=== PATIENT | male | born 1975 | race Caucasian/White ===

== ENCOUNTER 2019-01-02 19:38 | Emergency (ER) | payer MEDICAID ==
[~2019-01-02] VITALS: Ht 170.2 cm; Wt 82.8 kg
[2019-01-02 19:45] VITALS: Ht 170.2 cm; Wt 82.8 kg
[2019-01-02] MEDS ORDERED: PRED20TA PO (20:05)
[2019-01-02] MEDS ORDERED: LACR35O RIGHT EYE (20:05)
[2019-01-02] MEDS ORDERED: LACR35O LEFT EYE (20:05)
[2019-01-02] MEDS ORDERED: predniSONE 20 MG TAB PO ONE (20:30)
[2019-01-02 21:10] VITALS: BP 143/92; PULSE 75; RESP 19
--- NOTE | 2019-01-02 22:18 | ERD ---
ER Documentation Chief Complaint Chief Complaint CHEST PAIN, NUMBNESS; LAST KNOWN WELL 2100, YESTERDAY HPI Patient is a 43-year-old male with hypertension and diabetes who presents with left-sided facial droop. He is a left sided facial droop which includes his eyebrow on the left side. It started this morning. He has had no treatment as of yet. He has no fevers. He has no slurred speech. He has no amatory dysfunction. He has no weakness of the arms or legs. He does have a primary doctor. ROS All systems reviewed and are negative except as per history of present illness. Medications Home Meds Active Scripts Mineral Oil/Lanolin Oil (Lacri-Lube) 3.5 Gm Oint, 1 APPLIC LEFT EYE NEEDED for DRY EYES, #1 EA Prov:ALBER OLSON MD 01/02/19 Mineral Oil/Lanolin Oil (Lacri-Lube) 3.5 Gm Oint, 1 APPLIC RIGHT EYE NEEDED for DRY EYES, #1 EA Prov:ALBER OLSON MD 01/02/19 Prednisone* (Prednisone*) 20 Mg Tab, 60 MG PO DAILY for 4 Days, TAB Prov:ALBER OLSON MD 01/02/19 PMhx/Soc History of Surgery: Yes (hernia) Anesthesia Reaction: No Hx Neurological Disorder: No Hx Respiratory Disorders: No Hx Cardiac Disorders: Yes (htn, hld) Hx Psychiatric Problems: No Hx Alcohol Use: No Hx Substance Use: No Hx Tobacco Use: No Smoking Status: Never smoker FmHx Family History: No diabetes Physical Exam Vitals Vital Signs Date Temp Pulse Resp B/P (MAP) Pulse Ox O2 O2 Flow FiO2 Time Delivery Rate 01/02/19 98.1 75 19 143/92 98 Room Air 21:10 (109) 01/02/19 98.8 74 19 199/119 100 19:45 (145) Physical Exam Const: No acute distress Head: Atraumatic Eyes: Normal Conjunctiva ENT: Normal External Ears, Nose and Mouth. Neck: Full range of motion. No meningismus. Resp: Clear to auscultation bilaterally Cardio: Regular rate and rhythm, no murmurs Abd: Soft, non tender, non distended. Normal bowel sounds Skin: No petechiae or rashes Back: No midline or flank tenderness Ext: No cyanosis, or edema Neur: Awake and alert, left-sided facial droop which involves the eyebrows consistent with a Castanon's palsy, other cranial nerves are normal, no weakness of the upper or lower extremities bilaterally, no pronator drift, no slurred speech Psych: Normal Mood and Affect Results 24 hrs Current Medications Medications Dose Sig/Kate Start Time Status Last (Trade) Ordered Route PRN Stop Time Admin Dose Reason Admin Prednisone 60 mg ONCE ONCE 01/02/19 DC 01/02/19 (Prednisone) PO 20:30 20:18 01/02/19 20:31 Procedures/MDM Patient is a 43-year-old male presents with acute Castanon's palsy. I doubt stroke, intrarenal hemorrhage, or mass. The patient will be discharged with a prescription for prednisone and Lacri-Lube. The first dose was given in the emergency department. The patient was to follow-up with his primary doctor within 24 to 48 hours for reevaluation. He can return for worsening symptoms. Departure Diagnosis: Primary Impression: Castanon's palsy Condition: Fair Patient Instructions: Castanon's Palsy Referrals: Dr. Pino your doctor Additional Instructions: Llame al doctor [facility]ERRENCEANA y [facility] D[facility]RE PARA DENTRO DE 1-2 REDMAN.Dgale a la secretaria que nosotros le instruimos hacer esta dandre.Avise o llame si estrada condicin se empeora antes de la dandre. Regresa aqui si peor o no mejor. ALBER OLSON MD Jan 02, 2019 22:18
== END 2019-01-02 21:11 | disposition home or self-care (01) ==
LOC: E/R 19:38
DX: G51.0 Bell's palsy (principal); I10 Essential (primary) hypertension; E11.9 Type 2 diabetes mellitus without complications
CPT/HCPCS: J7512; Z7502; 99283